=== PATIENT | male | born 1980 | race Caucasian/White ===

== ENCOUNTER 2017-04-01 08:31 | Outpatient (CLI) | payer BC ==
[2017-04-01] MEDS ORDERED: Iopamidol 370 76% 100 ML VIAL ONE (09:00)
[2017-04-01 09:45] LABS: Anion Gap 14 mmol/L (10-20); BUN (Urea Nitrogen) 11 mg/dL (8.9-20.6); Calc. Creatinine Clearance 0 mL/min (70-130); Calcium 9.5 mg/dL (7.8-10.44); Carbon Dioxide 27 mmol/L (22-29); Chloride 101 mmol/L (98-107); Estimated GFR-MDRD Greater than 90
--- NOTE | 2017-04-01 11:07 | CT ---
CT ABDOMEN WITH AND WITHOUT CONTRAST CT PELVIS WITH AND WITHOUT CONTRAST: Date: 04-01-17 History: Microscopic hematuria since August of this year. Comparison: None. FINDINGS: No renal or ureteral calculi are seen bilaterally and there is no evidence of hydronephrosis. No defi nitive filling defects are seen within the renal collecting systems or the visualized ureters bilater ally on the delayed images. No enhancing renal mass, but there are a few tiny subcentimeter too small to characterize hypodense lesions in each kidney. The urinary bladder has a normal CT appearance although it is incompletely distended. The lung bases, liver, spleen, pancreas, bilateral adrenal glands, and kidneys as well as urinary mayi dder demonstrate a normal CT appearance. No free fluid, fluid collection, or lymphadenopathy is seen in the abdomen or pelvis. 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 There are degenerative changes seen in the lower lumbar spine. IMPRESSION: No enhancing renal mass is seen. There is no evidence of a renal calculus. There are a few tiny subce ntimeter too small to characterize hypodense lesions in each kidney. POS: MILY
== END 2017-04-01 08:32 | disposition home or self-care (01) ==
LOC: SCSCT 08:31
PROVIDERS: ATTEND Urology
DX: R31.29 Other microscopic hematuria (principal); N28.89 Other specified disorders of kidney and ureter; Z87.442 Personal history of urinary calculi
CPT/HCPCS: 36415; 74170; 80048